=== PATIENT | male | born 1950 | race Caucasian/White ===

== ENCOUNTER 2021-03-23 07:42 | Outpatient (CLI) | payer MEDICARE, OTHER, SELFPAY ==
--- NOTE | ~2021-03-23 | US_ITS ---
EXAMINATION: US carotid duplex BI DATE: 03/23/2021 08:13 INDICATION: Vision disturbance TECHNIQUE: Grayscale, color Doppler, and pulsed Doppler images of the cervical carotid arteries were obtained. The degree of vessel stenosis is placed in one of the following categories: normal, <50%, 5 0-69%, >=70% but less than near-occlusion, near-occlusion, or total occlusion. Note that percent sten osis relative to normal distal artery lumen diameter is indirectly measured from velocity measurement s as described by Favio, et al. Radiology 2003; 229:340-346. Notes: Normal: Peak systolic velocity <125 centimeters/sec and no plaque <50%. Peak systolic velocity <125 ( EDV <40; ICA/CCA PSV ratio <2.0; used these factors only a tandem lesions or low cardiac output or co ntralateral disease) 50-69 %: PSV 125-230 (EDV 40-100; ratio 2-4) >= 70% but less than near occlusion: PSV greater than 230 (EDV > 100; ratio> 4.0) Near Occlusion: PSV that is variable; markedly narrowed lumen Occlusion: Absent flow on color/spectral Doppler and no lumen on mcginnis scale. COMPARISON: None. FINDINGS: RIGHT: The right common carotid artery (CCA) peak systolic velocity (PSV) is 47 cm/s. The right internal car otid artery (ICA) PSV is 69 cm/s. The right ICA end-diastolic velocity (EDV) is 22 cm/s. The right IC A/CCA PSV ratio is 1.5. The external carotid artery (ECA) PSV is 113 cm/s. There is antegrade flow in the right vertebral artery. LEFT: The left CCA PSV is 79 cm/s. The left ICA PSV is 95 cm/s. The left ICA EDV is 27 cm/s. The left ICA/C CA PSV ratio is 1.5. The ECA PSV is 164 cm/s. There is antegrade flow in the left vertebral artery. IMPRESSION: 1. Less than 50% stenosis in the right internal carotid artery by sonographic criteria. 2. Less than 50% stenosis in the left internal carotid artery by sonographic criteria. Reviewed, dictated and finalized at location A. IMPRESSION: 1. Less than 50% stenosis in the right internal carotid artery by sonographic srinivasa gautam. 2. Less than 50% stenosis in the left internal carotid artery by sonographic meme nagel.
== END 2021-03-23 07:43 | disposition home or self-care (01) ==
LOC: ANHIMG 07:48
PROVIDERS: PCP Internal Medicine; Visit Provider Specialist
DX: H53.8 Other visual disturbances (principal); I65.23 Occlusion and stenosis of bilateral carotid arteries
CPT/HCPCS: 93880

== ENCOUNTER 2022-05-22 01:37 | Day surgery (SDC) | payer MEDICARE, OTHER, SELFPAY ==
[2022-05-06 12:57] VITALS: BMI 29.0
--- NOTE | 2022-05-21 11:57 | P.PNAN_ITS ---
Anes - Initial Pre Proc Eval Procedure: Operation Date: 05/22/22 11:00 Proposed Procedures p Screening Colonoscopy - Stevie Cota MD Date/Time: 05/21/22 11:57 Surgeon: Stevie Cota MD Pre Op Diagnosis: neoplasm screening Patient Data Age: 71 Gender: M Height: 1.85 m Weight: 100 kg Allergies Allergy/AdvReac Type Severity Reaction Status Date / Time No Known Allergies Allergy Mild Verified 05/22/22 10:22 Home Medications Medication Instructions Recorded Confirmed Type sodium sul 1.479 gram-potas ch See Rx Instructions PO PER PKG DIR 04/30/22 05/22/22 Rx 0.188 gram-magnes sul 0.225 gram #24 tabs tablet (Sutab) finasteride 5 mg tablet 1 tablet PO DAILY 05/06/22 05/22/22 History losartan 50 mg tablet 50 tablet PO DAILY 05/06/22 05/22/22 History metformin 500 mg tablet 500 tablet PO DAILY 05/06/22 05/22/22 History nebivolol 5 mg tablet (Bystolic) 5 mg PO HS 05/06/22 05/22/22 History Patient hx anesthesia problems: none Family hx anesthesia problems: none Results Review: All pre-operative results and documents have been reviewed as part of the pre- operative evaluation. [facility]LY [facility] Past Medical History Medical History BPH (benign prostatic hyperplasia) Diabetes type 2, controlled Hypertension Social History Social History Years smoked: 40 Smoking status: Former smoker Tobacco type: pipe Alcohol intake: current Drinks per week: 2 Substance use type: does not use Anes - Eval Final PreProcedure Day of Procedure 05/21/22 11:57 Patient weight: overweight Heart: regular rate and rhythm Lungs: clear to auscultation Airway: Mallampati scale class II Neurological: alert and oriented Last oral intake: >/= 8 hours ASA classification: III Emergent: no Anesthetic plan: proceed Anesthesia type and monitoring: general GIVS and standard monitoring Results Review: All pre-operative results and documents have been reviewed as part of the pre- operative evaluation. Informed Consent: The patient's anesthetic plan and its attendant risks and benefits were discussed with the patient/family/POA. Questions were solicited and answers provided to the satisfaction of the patient/family/POA.
[2022-05-22 10:24] VITALS: BP 181/64; PULSE 48; RESP 17; TEMP 36.4; O2SAT 97
[2022-05-22] MEDS: LACTATED RINGERS 1,000 ML 150 ML IV CONT (10:34)
[2022-05-22 10:39] LABS: Glucose Point of Care 142 mg/dl (65-105)
--- NOTE | 2022-05-22 11:09 | PM.HPGS ---
History of Present Illness History of Present Illness Consent: Risks, benefits, and alternatives have been discussed and questions answered. Patient agrees to proceed with procedure. Chief complaint: neoplasm screening Narrative: Juan Daniel Herrera is a 71 year old male Was referred for colon cancer screening. Review of Systems Review of Systems: All systems reviewed & are unremarkable except as noted in HPI and below PMFSH Past Medical History Medical History BPH (benign prostatic hyperplasia) Diabetes type 2, controlled Hypertension Social History Social History Years smoked: 40 Smoking status: Former smoker Tobacco type: pipe Alcohol intake: current Drinks per week: 2 Substance use type: does not use Meds Home Medications and Allergies Home Medications Medication Instructions Recorded Confirmed Type sodium sul 1.479 gram-potas ch See Rx Instructions PO PER PKG DIR 04/30/22 05/22/22 Rx 0.188 gram-magnes sul 0.225 gram #24 tabs tablet (Sutab) finasteride 5 mg tablet 1 tablet PO DAILY 05/06/22 05/22/22 History losartan 50 mg tablet 50 tablet PO DAILY 05/06/22 05/22/22 History metformin 500 mg tablet 500 tablet PO DAILY 05/06/22 05/22/22 History nebivolol 5 mg tablet (Bystolic) 5 mg PO HS 05/06/22 05/22/22 History Allergies Allergy/AdvReac Type Severity Reaction Status Date / Time No Known Allergies Allergy Mild Verified 05/22/22 10:22 Vital Signs Vital Signs - 24 hr 05/22/22 10:24 Temperature 36.4 C L Pulse Rate 48 L Respiratory Rate 17 Blood Pressure 181/64 H Pulse Oximetry 97 Oxygen Delivery Room Air Exam Resp: Auscultation: clear to auscultation bilaterally Cardio: Rate: regular rate Rhythm: regular rhythm GI: GI Palp: Yes Soft to palpation and No Tenderness to palpation present (GI) Assessment and Plan Assessment and plan (1) Colon cancer screening: Code(s): Z12.11 - Encounter for screening for malignant neoplasm of colon Status: Acute Assessment and Plan: Colonoscopy with possible biopsy or polypectomy or cautery or injection of substances.
[2022-05-22 11:30] VITALS: BP 123/61; PULSE 45; RESP 16; O2SAT 95
[2022-05-22 11:40] VITALS: BP 124/59; PULSE 48; RESP 20; O2SAT 99
[2022-05-22 11:50] VITALS: BP 168/76; PULSE 52; RESP 22; O2SAT 100
== END 2022-05-22 12:00 | disposition home or self-care (01) ==
PROVIDERS: PCP Internal Medicine; Visit Provider Internal Medicine Gastroenterology
PROC: 0DJD8ZZ Inspection of Lower Intestinal Tract, Via Natural or Artificial Opening Endoscopic (ICD-10-PCS; CPT 45378; principal; 2022-05-22 11:00)
DX: Z12.11 Encounter for screening for malignant neoplasm of colon (principal); D12.2 Benign neoplasm of ascending colon; D12.8 Benign neoplasm of rectum; K57.30 Diverticulosis of large intestine without perforation or abscess without bleeding; N40.0 Benign prostatic hyperplasia without lower urinary tract symptoms; E11.9 Type 2 diabetes mellitus without complications; I10 Essential (primary) hypertension; Z87.891 Personal history of nicotine dependence; Z79.84 Long term (current) use of oral hypoglycemic drugs
CPT/HCPCS: 45380; 45385; 82948; 88305; J2704; J7120

== ENCOUNTER 2022-10-09 10:31 | Emergency (ER) | payer MEDICARE, OTHER, SELFPAY ==
[2022-10-09 10:36] VITALS: BP 172/62; PULSE 84; RESP 18; TEMP 36.4; O2SAT 99
[2022-10-09 11:56] VITALS: BP 146/66; PULSE 51
--- NOTE | 2022-10-09 13:51 | ECG_ITS ---
Measurements Intervals [place] Rate: 51 P: 16 NH: 174 QRS: -9 QRSD: 113 T: 35 QT: 449 QTc: 417 Interpretive Statements SINUS BRADYCARDIA INTRAVENTRICULAR CONDUCTION DELAY CONSIDER INFERIOR INFARCT, AGE INDETERMINATE BORDERLINE ST-T WAVE ABNORMALITY- HIGH LATERAL LEADS BASELINE ARTIFACT- I, II, III, AVR, AVL, AVF ABNORMAL ECG NO PREVIOUS ECG AVAILABLE FOR COMPARISON Electronically Signed On 10-09-2022 16:21:54 CONSULTING GROUP ANALYST by Eusebio David D.O.
--- NOTE | 2022-10-09 14:37 | ED.RECABL ---
HPI - Recheck/Abnormal Lab/Rx General Chief Complaint: Recheck/Abnormal Lab/Rx Stated Complaint: high bp Time Seen by Provider: 10/09/22 13:36 Source: patient and RN notes reviewed Mode of arrival: ambulatory Limitations: no limitations History of Present Illness HPI narrative: This is a 71 year old male with history of hypertension who presents for evaluation of elevated blood pressure. Patient was scheduled to have cataract surgery this morning but his surgery was postponed due to elevated blood pressure. He states his blood pressure was 200s/70s this morning. He was told at the clinic that he needed to come to ER. He denies dizziness, headache, chest pain or shortness of breath. HE took his blood pressure medication this morning and he takes another medication at night. He denies any recent changes in his medication. He denies nervousness or anxiety. His primary care provider is Dr. Mcdaniel. Related Data Home Medications Medication Instructions Recorded Confirmed finasteride 5 mg tablet 1 tablet PO DAILY 05/06/22 05/22/22 losartan 50 mg tablet 50 tablet PO DAILY 05/06/22 05/22/22 metformin 500 mg tablet 500 tablet PO DAILY 05/06/22 05/22/22 nebivolol 5 mg tablet (Bystolic) 5 mg PO HS 05/06/22 05/22/22 Allergies Allergy/AdvReac Type Severity Reaction Status Date / Time No Known Allergies Allergy Mild Verified 05/22/22 10:22 Review of Systems Review of Systems: All systems reviewed & are unremarkable except as noted in HPI and below Constitutional: Constitutional: Denies chills, Denies fatigue and Denies fever(s) Eyes: Eyes: Denies photophobia Cardiovascular: Cardiovascular: Denies chest pain and Denies radiating jaw, neck or arm pain Respiratory: Respiratory: Denies dyspnea Neurologic: Denies headache(s), Denies focal weakness and Denies numbness PMFSH Past Medical History Medical History BPH (benign prostatic hyperplasia) Diabetes type 2, controlled Hypertension Social History Social History Years smoked: 40 Smoking status: Former smoker Tobacco type: pipe Alcohol intake: current Drinks per week: 2 Substance use type: does not use Exam Narrative: GENERAL: Well-appearing, well-nourished, and in no acute distress. HEAD: Normocephalic, atraumatic EYES: PERRLA and EOMI, conjunctiva clear without discharge THROAT:Mucous membranes moist, Oropharynx normal without erythema, exudate, peritonsillar swelling or fluctuance NECK: Supple, without lymphadenopathy or mass RESPIRATORY: No respiratory distress, Airway patent, Respirations non-labored, Clear to auscultation without rales, rhonchi or wheeze HEART: Regular rate and rhythm. No murmur heard. Normal peripheral pulses. ABDOMEN: Soft, nontender, nondistended, normal active bowel sounds. No masses. No rebound or guarding, No organomegaly. EXTREMITIES: No edema, normal strength with full range of motion. SKIN: Warm, dry, normal color without rash NEURO: Alert and oriented x3. CN 2-12 grossly intact. No focal deficits. PSYCH: Normal mood and affect. Course Reevaluation(s) Reevaluation #1: Patient is asymptomatic. I spoke with his PCP who recommends increase losartan to 100 mg and he will follow up in clinic. Date: 10/09/22 Time: 15:32 Vital Signs Vital signs: Vital Signs Temperature 97.6 F 10/09/22 10:36 Pulse Rate 84 10/09/22 10:36 Respiratory Rate 18 10/09/22 10:36 Blood Pressure 172/62 H 10/09/22 10:36 Pulse Oximetry 99 10/09/22 10:36 Oxygen Delivery Room Air 10/09/22 10:36 Temperature 97.6 F 10/09/22 10:36 Pulse Rate 51 L 10/09/22 11:56 Respiratory Rate 18 10/09/22 10:36 Blood Pressure 146/66 H 10/09/22 11:56 Pulse Oximetry 99 10/09/22 10:36 Oxygen Delivery Room Air 10/09/22 10:36 MDM - Recheck/Abnormal Lab/Rx Lab Data Attestation: I reviewed the patient's lab resul
[2022-10-09 14:49] LABS: Basophils Percent Auto 0.2 % (0.2-1.2); Eosinophils Absolute Auto 0.1 K/mm3 (0-0.3); Eosinophils Percent Auto 1.3 % (0-4.4); Hematocrit 39.2 % (42.0-52.0); Hemoglobin 13.7 g/dL (14.0-18.0); Immature Granulocyte Absolute 0.02 K/mm3 (0.00-0.031); Immature Granulocyte Percent A 0.3 % (0-0.5); Immature Platelet Fraction Pct 5.7 % (0.9-11.2); Lymphocytes Percent Auto 29.8 % (18.3-44.2); Mean Corpuscular HGB Conc 34.9 g/dl (32-36); Mean Corpuscular Hemoglobin 31.4 pg (26-34); Mean Corpuscular Volume 89.7 fl (80-100); Mean Platelet Volume 10.3 fl (7.4-10.4); Monocytes Absolute Auto 0.6 K/mm3 (0.1-0.6); Monocytes Percent Auto 8.6 % (2.6-8.5); Neutrophils Absolute Auto 3.8 K/mm3 (1.3-6.7); Neutrophils Percent Auto 59.8 % (45.5-73.1); Platelet Count Result 154 k/mm3 (150-375); Red Blood Count 4.37 M/mm3 (4.6-6.20); Red Cell Distribution Width 12.5 % (11.5-14.5); White Blood Count 6.4 K/mm3 (4.5-10.0)
[2022-10-09 15:00] LABS: Anion Gap 9 mmol/L (8-16); Blood Urea Nitrogen 18 mg/dL (9-20); Carbon Dioxide 25 mmol/L (22-30); Chloride 105 mmol/L (98-107); Estimated CRCL calculation 63 ml/min; Estimated Glomerular Filt Rate > 60; Glucose 120 mg/dL (65-110); Potassium 4.5 mmol/L (3.4-5.0); Sodium 139 mmol/L (137-145)
[2022-10-09 15:28] LABS: Appearance Urine Clear (Clear); Bilirubin Urine Negative (Negative); Blood Urine Negative (Negative); Color Urine Yellow (Yellow); Glucose Urine UA Negative (Negative); Ketones Urine Negative (Negative); Leukocyte Esterase Ur Negative LEU/UL (Negative); Nitrate Urine Negative (Negative); Protein Urine Negative (Negative); Urobilinogen Urine 0.2 mg/dL (<2.0); pH Urine 6.5 (5.0-9.0)
[2022-10-09 15:30] LABS: Add Urine Microscopic? NO
[2022-10-09] MEDS: LOSARTAN POTASSIUM 50 MG TABLET PO (15:36)
[2022-10-09 15:51] LABS: Influenza A QL RT-PCR Negative (Negative); Influenza B QL RT-PCR Negative (Negative); SARS-CoV-2 RNA PCR Negative
== END 2022-10-09 15:44 | disposition home or self-care (01) ==
PROVIDERS: Emergency Provider General Practice; PCP Internal Medicine
DX: I10 Essential (primary) hypertension (principal); I16.0 Hypertensive urgency; Z20.822 Contact with and (suspected) exposure to COVID-19; N40.0 Benign prostatic hyperplasia without lower urinary tract symptoms; E11.9 Type 2 diabetes mellitus without complications; Z79.84 Long term (current) use of oral hypoglycemic drugs; Z87.891 Personal history of nicotine dependence; R00.1 Bradycardia, unspecified; I45.9 Conduction disorder, unspecified; R94.31 Abnormal electrocardiogram [ECG] [EKG]
CPT/HCPCS: 36415; 80048; 81003; 85025; 85055; 87502; 93005; 99283; A9270; U0003; U0005

== ENCOUNTER 2025-01-26 14:06 | Inpatient (IN) | payer MEDICARE, OTHER, SELFPAY ==
[2025-01-26 14:09] VITALS: BP 112/60; PULSE 60; RESP 20; TEMP 36.4; O2SAT 95
--- NOTE | 2025-01-26 16:09 | ED.DIZZY ---
HPI - Dizziness General Chief Complaint: Dizziness <Lisa Walker PA-C - Last Filed: 01/27/25 14:21> Stated Complaint: dizzy, near syncope <Lisa Walker PA-C - Last Filed: 01/27/25 14:21> Time Seen by Provider: 01/26/25 16:09 <Lisa Walker PA-C - Last Filed: 01/27/25 14:21> Focused HPI: This is a 74 year old male that presents to the ER for syncopal episodes. Reports over the last 2 weeks this has happened several times. He has worn a heart monitor. Reports he has been taken off of both of his blood pressure medications (Losartan, Nebivolol), as he has been running low. Reports today when he was standing up at lunch he got really lightheaded. He felt better after sitting down. GENERAL: Well-appearing, well-nourished, and in no acute distress. HEAD: Normocephalic, atraumatic. CHEST: Clear to auscultation. ?No respiratory distress. HEART: Regular rate and rhythm.? NEURO: ?Alert and oriented x3. Patient screened in triage and initial orders placed.? ?Additional care and disposition to be based upon?diagnostic testing and treatment. <Lisa Walker PA-C - Last Filed: 01/27/25 14:21> History of Present Illness HPI Narrative: I agree with the assessment and documentation of Lisa Walker PA-C. <Patti Bruner APRN - Last Filed: 01/26/25 22:08> Related Data Home Medications: Home Medications ?Medication ?Instructions ?Recorded ?Confirmed ?Last Taken ?Type finasteride 5 mg tablet 1 tablet PO DAILY 05/06/22 01/27/25 01/27/25 History losartan 50 mg tablet 50 tablet PO DAILY 05/06/22 01/27/25 05/21/22 History metformin 500 mg tablet 1,000 mg PO QAM 05/06/22 01/27/25 01/27/25 History nebivolol 5 mg tablet (Bystolic) 5 mg PO HS 05/06/22 01/27/25 05/21/22 History aspirin 81 mg capsule 81 mg PO DAILY 01/27/25 01/27/25 01/27/25 History rosuvastatin 10 mg tablet 10 mg PO QPM 01/27/25 01/27/25 01/26/25 History <Lisa Walker PA-C - Last Filed: 01/27/25 14:21> Allergies/Adverse Reactions: Allergies Allergy/AdvReac Type Severity Reaction Status Date / Time No Known Allergies Allergy Mild Verified 01/26/25 14:07 <Lisa Walker PA-C - Last Filed: 01/27/25 14:21> Review of Systems Review of Systems: All systems reviewed & are unremarkable except as noted in HPI and below <Patti Bruner APRN - Last Filed: 01/26/25 22:08> [facility] Past Medical History Medical History: Medical History Diabetes type 2, controlled BPH (benign prostatic hyperplasia) Hypertension <Lisa Walker PA-C - Last Filed: 01/27/25 14:21> Social History Social History: Social History Years smoked: 40 Smoking status: Former smoker Tobacco type: pipe Alcohol intake: current Drinks per week: 2 Substance use type: does not use <Lisa Walker PA-C - Last Filed: 01/27/25 14:21> Exam Narrative: GENERAL: Well appearing, well-nourished, non-toxic, in no acute distress. HEAD: Normocephalic, atraumatic. NECK: Supple. No adenopathy, no masses. RESPIRATORY: Airway patent, respirations nonlabored. Clear to auscultation bilaterally, no rales, rhonchi, wheezing. CARDIOVASCULAR: Regular rate and rhythm without murmurs, rubs, or gallops. Peripheral pulses 2+ and equal bilaterally. ABDOMINAL: Soft, nontender, nondistended, no hepatosplenomegaly. Normoactive BS. MUSCULOSKELETAL: Moves all extremities. Strength/ROM intact without gross deformities. SKIN: Warm, dry, normal color. No rashes. NEURO: A&O X3. Speech clear. Cranial nerves II-XII grossly intact. Steady gait. No ataxic movements. PSYCHIATRIC: Appropriate mood and affect. Normal interaction. <Patti Bruner, YOVANY - Last Filed: 01/26/25 22:08> Course Vital Signs Vital signs: Vital Signs Temperature 97.6 F 01/26/25 14:09 Pulse Rate 60 01/26/25 14:09 Respiratory Rate 20 01/26/25 14:09 Blood Pressure 112/60 01/26/25 14:09 Pulse Oximetry 95 01/26/25 14:09 Oxygen Delivery Room Air 01/26/25 14:09 Temperature 97.6 F 01/27/25 07:26 Pulse Rate 56 L 01/27/25 11:33 Respiratory Rate 15 01/27/25 11:29 Blood Pressure 191/69 H 01/27/25 11:33 Pulse Oximetry 98 01/27/25 11:29 Oxygen Delivery Room Air 01/26/25 14:09 <Lisa Walker PA-C - Last Filed: 01/27/25 14:21> Vital Signs Temperature 97.6 F 01/26/25 14:09 Pulse Rate 60 01/26/25 14:09 Respiratory Rate 20 01/26/25 14:09 Blood Pressure 112/60 01/26/25 14:09 Pulse Oximetry 95 01/26/25 14:09 Oxygen Delivery Room Air 01/26/25 14:09 Temperature 97.6 F 01/27/25 07:26 Pulse Rate 56 L 01/27/25 11:33 Respiratory Rate 15 01/27/25 11:29 Blood Pressure 191/69 H 01/27/25 11:33 Pulse Oximetry 98 01/27/25 11:29 Oxygen Delivery Room Air 01/26/25 14:09 <Patti Bruner, VP MEDICAL - Last Filed: 01/26/25 22:08> MDM - Dizziness MDM Narrative Medical decision making narrative: This is a 74 year old male that presents to the ER for syncopal episodes. Reports over the last 2 weeks this has happened several times. He has worn a heart monitor. Reports he has been taken off of both of his blood pressure medications (Losartan, Nebivolol), as he has been running low. Reports today when he was standing up at lunch he got really lightheaded. He felt better after sitting down. Labs Ordered: CBC, CMP, PTT, INR, TSH, magnesium, COVID/flu/RSV, lactate, troponin Imaging Ordered: CTA brain carotid, chest x-ray Medications Ordered: 2 L normal saline IV bolus Results: Patient's CTA indicated CTA head and neck. Percent stenosis per NASCET criteria is 60% on the left side and 40% on the right side. No intracranial occlusion or significant stenosis. Pt's chest x-ray was negative for any acute abnormalities. Diagnosis: Orthostatic hypotension, acute kidney injury Patient Education/Shared MDM: Results shared with patient and his . He was in agreement for plan of admission to the hospital. Pt's glucose will be rechecked prior to his admission. 2199-Spoke with hospitalist who was in agreement with plan. He requested pt's lactic acid be drawn. <Patti Bruner APRN - Last Filed: 01/26/25 22:08> Differential Diagnosis Differential diagnosis: Likely benign paroxysmal positional vertigo, orthostatic hypotension, cerebrovascular accident and transient cerebral ischemia <Patti Bruner APRN - Last Filed: 01/26/25 22:08> Lab Data Attestation: I reviewed the patient's lab results. <Patti Bruner APRN - Last Filed: 01/26/25 22:08> Result diagrams: 01/27/25 07:21 01/27/25 07:21 <Lisa Walker PA-C - Last Filed: 01/27/25 14:21> Labs: Lab Results 01/26/25 01/26/25 01/26/25 Range/Units 17:31 17:53 18:47 WBC 6.0 (4.5-10.0) K/mm3 RBC 4.00 L (4.6-6.20) M/mm3 Hgb 12.4 L (14.0-18.0) g/dL Hct 36.4 L (42.0-52.0) % MCV 91.0 (80-100) fl MCH 31.0 (26-34) pg MCHC 34.1 (32-36) g/dl RDW 12.6 (11.5-14.5) % Plt Count 137 L (150-375) k/mm3 MPV 10.1 (7.4-10.4) fl Immature Gran % (Auto) 0.3 (0-0.5) % Neut % (Auto) 62.6 (45.5-73.1) % Lymph % (Auto) 27.0 (18.3-44.2) % [place] % (Auto) 8.8 H (2.6-8.5) % Eos % (Auto) 1.0 (0-4.4) % Baso % (Auto) 0.3 (0.2-1.2) % Lymph # (Auto) 1.63 (0.9-3.2) K/mm3 [place] # (Auto) 0.5 (0.1-0.6) K/mm3 Eos # (Auto) 0.1 (0-0.3) K/mm3 Baso # (Auto) 0.0 (0.0-0.1) K/mm3 Abs Immat Gran (auto) 0.02 (0.00-0.031) K/mm3 Absolute Neuts (auto) 3.8 (1.3-6.7) K/mm3 Absolute Nucleated RBC 0.000 (0.0-0.012) K/mm3 Nucleated RBC % 0.0 (0.0-0.2) % % Immature Plt Fraction 4.5 (0.9-11.2) % PT 13.4 (11.1-14.7) Seconds INR 1.0 APTT 33.4 (22.3-36.8) Seconds Sodium 139 (137-145) mmol/L Potassium 4.8 (3.4-5.0) mmol/L Chloride 105 (98-107) mmol/L Carbon Dioxide 24 (22-30) mmol/L Anion Gap 10 (4-12) mmol/L BUN 28 H D (9-20) mg/dL Creatinine 1.48 H (0.7-1.3) mg/dL Estim Creat Clear Calc 45 ml/min Estimated GFR 47 L (59 - ) Glucose 169 H (65-110) mg/dL Calcium 9.1 (8.4-10.2) mg/dL Magnesium 2.1 (1.6-2.3) mg/dL Total Bilirubin 1.1 (0.2-1.3) mg/dL AST 19 (17-59) U/L ALT 18 (6-50) U/L Alkaline Phosphatase 48 (38-126) U/L Troponin I < 0.012 (0.000-0.034) ng/mL Total Protein 7.0 (6.3-8.2) g/dL Albumin 4.1 (3.5-5.1) g/dL TSH (Reflex) 0.716 (0.465-4.68) uIU/mL Urine Color Yellow (Yellow) Urine Appearance Clear (Clear) Urine pH 5.5 (5.0-9.0) Ur Specific [place] 1.019 (1.001-1.035) Urine Protein Negative (Negative) mg/dL Urine Glucose (UA) 2+ H (Negative) mg/dL Urine Ketones Negative (Negative) mg/dL Ur Blood (Man) Negative (Negative) Urine Nitrate Negative (Negative) Urine Bilirubin Negative (Negative) Urine Urobilinogen 1.0 (<2.0) mg/dL Leukocyte Esterase Rfl Negative (Negative) LEANN/UL Influenza A (RT-PCR) Negative (Negative) Influenza B (RT-PCR) Negative (Negative) RSV (RT-PCR) Negative (Negative) SARS-CoV-2 RNA (RT-PCR) Negative (Negative) <Lisa Walker PA-C - Last Filed: 01/27/25 14:21> Lab Results 01/26/25 01/26/25 01/26/25 Range/Units 17:31 17:53 18:47 WBC 6.0 (4.5-10.0) K/mm3 RBC 4.00 L (4.6-6.20) M/mm3 Hgb 12.4 L (14.0-18.0) g/dL Hct 36.4 L (42.0-52.0) % MCV 91.0 (80-100) fl MCH 31.0 (26-34) pg MCHC 34.1 (32-36) g/dl RDW 12.6 (11.5-14.5) % Plt Count 137 L (150-375) k/mm3 MPV 10.1 (7.4-10.4) fl Immature Gran % (Auto) 0.3 (0-0.5) % Neut % (Auto) 62.6 (45.5-73.1) % Lymph % (Auto) 27.0 (18.3-44.2) % [place] % (Auto) 8.8 H (2.6-8.5) % Eos % (Auto) 1.0 (0-4.4) % Baso % (Auto) 0.3 (0.2-1.2) % Lymph # (Auto) 1.63 (0.9-3.2) K/mm3 [place] # (Auto) 0.5 (0.1-0.6) K/mm3 Eos # (Auto) 0.1 (0-0.3) K/mm3 Baso # (Auto) 0.0 (0.0-0.1) K/mm3 Abs Immat Gran (auto) 0.02 (0.00-0.031) K/mm3 Absolute Neuts (auto) 3.8 (1.3-6.7) K/mm3 Absolute Nucleated RBC 0.000 (0.0-0.012) K/mm3 Nucleated RBC % 0.0 (0.0-0.2) % % Immature Plt Fraction 4.5 (0.9-11.2) % PT 13.4 (11.1-14.7) Seconds INR 1.0 APTT 33.4 (22.3-36.8) Seconds Sodium 139 (137-145) mmol/L Potassium 4.8 (3.4-5.0) mmol/L Chloride 105 (98-107) mmol/L Carbon Dioxide 24 (22-30) mmol/L Anion Gap 10 (4-12) mmol/L BUN 28 H D (9-20) mg/dL Creatinine 1.48 H (0.7-1.3) mg/dL Estim Creat Clear Calc 45 ml/min Estimated GFR 47 L (59 - ) Glucose 169 H (65-110) mg/dL Calcium 9.1 (8.4-10.2) mg/dL Magnesium 2.1 (1.6-2.3) mg/dL Total Bilirubin 1.1 (0.2-1.3) mg/dL AST 19 (17-59) U/L ALT 18 (6-50) U/L Alkaline Phosphatase 48 (38-126) U/L Troponin I < 0.012 (0.000-0.034) ng/mL Total Protein 7.0 (6.3-8.2) g/dL Albumin 4.1 (3.5-5.1) g/dL TSH (Reflex) 0.716 (0.465-4.68) uIU/mL Urine Color Yellow (Yellow) Urine Appearance Clear (Clear) Urine pH 5.5 (5.0-9.0) Ur Specific [place] 1.019 (1.001-1.035) Urine Protein Negative (Negative) mg/dL Urine Glucose (UA) 2+ H (Negative) mg/dL Urine Ketones Negative (Negative) mg/dL Ur Blood (Man) Negative (Negative) Urine Nitrate Negative (Negative) Urine Bilirubin Negative (Negative) Urine Urobilinogen 1.0 (<2.0) mg/dL Leukocyte Esterase Rfl Negative (Negative) LEANN/UL Influenza A (RT-PCR) Negative (Negative) Influenza B (RT-PCR) Negative (Negative) RSV (RT-PCR) Negative (Negative) SARS-CoV-2 RNA (RT-PCR) Negative (Negative) <Patti Bruner APRN - Last Filed: 01/26/25 22:08> Imaging Data Attestation: I personally reviewed and interpreted this imaging study as follows: <Patti Bruner APRN - Last Filed: 01/26/25 22:08> Radiologist's impression: Impressions Chest X-Ray 01/26/25 16:35 IMPRESSION: 1. No acute cardiopulmonary disease. Head/Neck CTA 01/26/25 19:37 IMPRESSION: 1. CTA head and neck. Percent stenosis per NASCET criteria is 60% on the left side and 40% on the right side. No intracranial occlusion or significant stenosis <Patti Bruner APRN - Last Filed: 01/26/25 22:08> Critical Care Time Critical Care Time Critical Care Time: Yes <Lisa Walker PA-C - Last Filed: 01/27/25 14:21> Total Critical Care Time: 35 <LEILA Tello Last Filed: 01/27/25 14:21> Discharge Plan Discharge Clinical Impression: Orthostatic hypotension, Acute kidney injury <LEILA Tello Last Filed: 01/27/25 14:21> Patient Disposition: Still a Patient <LEILA Tello Last Filed: 01/27/25 14:21> Condition: Stable <LEILA Tello Last Filed: 01/27/25 14:21>
[2025-01-26 17:41] LABS: Basophils Percent Auto 0.3 % (0.2-1.2); Eosinophils Absolute Auto 0.1 K/mm3 (0-0.3); Hematocrit 36.4 % (42.0-52.0); Hemoglobin 12.4 g/dL (14.0-18.0); Immature Granulocyte Absolute 0.02 K/mm3 (0.00-0.031); Immature Granulocyte Percent A 0.3 % (0-0.5); Immature Platelet Fraction Pct 4.5 % (0.9-11.2); Lymphocytes Absolute Auto 1.63 K/mm3 (0.9-3.2); Mean Corpuscular HGB Conc 34.1 g/dl (32-36); Mean Platelet Volume 10.1 fl (7.4-10.4); Monocytes Absolute Auto 0.5 K/mm3 (0.1-0.6); Monocytes Percent Auto 8.8 % (2.6-8.5); Neutrophils Absolute Auto 3.8 K/mm3 (1.3-6.7); Neutrophils Percent Auto 62.6 % (45.5-73.1); Platelet Count Result 137 k/mm3 (150-375); Red Cell Distribution Width 12.6 % (11.5-14.5)
[2025-01-26 18:00] LABS: Alanine Aminotransferase 18 U/L (6-50); Albumin Level 4.1 g/dL (3.5-5.1); Alkaline Phosphatase 48 U/L (38-126); Anion Gap 10 mmol/L (4-12); Aspartate Amino Transferase 19 U/L (17-59); Bilirubin,Total 1.1 mg/dL (0.2-1.3); Blood Urea Nitrogen 28 mg/dL (9-20); Calcium 9.1 mg/dL (8.4-10.2); Carbon Dioxide 24 mmol/L (22-30); Chloride 105 mmol/L (98-107); Estimated CRCL calculation 45 ml/min; Estimated Glomerular Filt Rate 47; Glucose 169 mg/dL (65-110); Potassium 4.8 mmol/L (3.4-5.0); Sodium 139 mmol/L (137-145)
[2025-01-26 18:11] LABS: Troponin I < 0.012 ng/mL (0.000-0.034)
[2025-01-26 18:23] LABS: Magnesium 2.1 mg/dL (1.6-2.3)
[2025-01-26 18:46] VITALS: BP 193/55; PULSE 62
[2025-01-26 18:52] VITALS: BP 141/57; PULSE 66
[2025-01-26 18:54] VITALS: BP 89/40; PULSE 70
[2025-01-26 18:56] LABS: Thyroid Stimulating Hormone Reflex 0.716 uIU/mL (0.465-4.68)
[2025-01-26 18:56] LABS: Add Urine Microscopic? NO; Appearance Urine Clear (Clear); Bilirubin Urine Negative (Negative); Blood Urine Negative (Negative); Color Urine Yellow (Yellow); Glucose Urine UA 2+ mg/dL (Negative); Ketones Urine Negative (Negative); Leukocyte Esterase Ur Negative LEU/UL (Negative); Nitrate Urine Negative (Negative); Protein Urine Negative (Negative); Specific Grav Ur 1.019 (1.001-1.035); pH Urine 5.5 (5.0-9.0)
[2025-01-26 18:57] LABS: Influenza A QL RT-PCR Negative (Negative); Influenza B QL RT-PCR Negative (Negative); RSV RNA, RT-PCR Negative (Negative); SARS-CoV-2 RNA PCR Negative (Negative)
[2025-01-26 19:10] LABS: Prothrombin Time 13.4 Seconds (11.1-14.7)
[2025-01-26 19:11] LABS: Partial Thromboplastin Time 33.4 Seconds (22.3-36.8)
[2025-01-26] MEDS: SODIUM CHLORIDE 0.9% IV 1,000 ML 999 ML IV CONT ×2 (20:16→20:38)
[2025-01-26 20:57] VITALS: BP 198/63; PULSE 64; RESP 16; O2SAT 100
[2025-01-26 22:45] LABS: Lactic Acid Reflex 1.2 mmol/L (0.7-2.0)
[2025-01-26 22:48] LABS: Glucose Point of Care 166 mg/dl (65-105)
--- NOTE | 2025-01-26 23:40 | PM.IMHP ---
H&P: HPI History of Present Illness Date/Time: 01/27/25 02:53 Chief Complaint: 1. Dizziness Narrative: Chino Herrera is a 74 yo M with a mHx significant for dizziness, hypertension, NIDDM2, BPH. He has been experiencing intermittent dizziness over the years; it is usually aggravated by standing from a standing position; alleviated by sitting or laying supine; associated with falls and a restriction of his ADLs In the past his Tamsulosin was stopped; he has experience micturition syncope and in recent weeks has had to stop his Nebivolol and Losartan, had a Holter monitor placed to evaluate for cardiac events. He has remained stable until hours [employer] when after dinner at a restaurant, he stood up to leave and developed dizziness which resolved on sitting but returned when he tried again to stand. He was therefore brought to the ED for expert evaluation. 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 He resides with his and does not ambulate with an assist device Work-up findings Orthostatic VS: Sitting 141/57, HR 66 Standing 89/40; HR70 Sitting 198/63, HR 64 WbC 6; Hb 12; PLT 137 BUN 28; Cr 1.48; GFr 47; UA: Unremarkable Influenza A/B; RSV; COVID-19: Not detected CXR: Unremarkable CTA head and neck: 60% on the left side and 40% on the right side. No intracranial occlusion or significant stenosis Juan Daniel Herrera will be admitted, evaluated and managed for orthostatic hypotension with dizziness Review of Systems Review of Systems: All systems reviewed & are unremarkable except as noted in HPI and below PMFSH Past Medical History Medical History Diabetes type 2, controlled BPH (benign prostatic hyperplasia) Hypertension Social History Social History Years smoked: 40 Smoking status: Former smoker Tobacco type: pipe Alcohol intake: current Drinks per week: 2 Substance use type: does not use Meds Home Medications and Allergies Home Medications ?Medication ?Instructions ?Recorded ?Confirmed ?Type sodium sul 1.479 gram-potas ch See Rx Instructions PO PER PKG DIR 04/30/22 01/27/25 Rx 0.188 gram-magnes sul 0.225 gram #24 tabs tablet (Sutab) finasteride 5 mg tablet 1 tablet PO DAILY 05/06/22 01/27/25 History losartan 50 mg tablet 50 tablet PO DAILY 05/06/22 01/27/25 History metformin 500 mg tablet 1,000 mg PO QAM 05/06/22 01/27/25 History nebivolol 5 mg tablet (Bystolic) 5 mg PO HS 05/06/22 01/27/25 History aspirin 81 mg capsule 81 mg PO DAILY 01/27/25 01/27/25 History rosuvastatin 10 mg tablet 10 mg PO QPM 01/27/25 01/27/25 History Allergies Allergy/AdvReac Type Severity Reaction Status Date / Time No Known Allergies Allergy Mild Verified 01/26/25 14:07 Vital Signs Vital Signs - 24 hr 01/26/25 14:09 01/26/25 18:46 01/26/25 18:52 Temperature 97.6 F Pulse Rate 60 62 66 Respiratory Rate 20 Blood Pressure 112/60 193/55 H 141/57 H Pulse Oximetry 95 Oxygen Delivery Room Air 01/26/25 18:54 01/26/25 20:57 01/27/25 00:20 Temperature Pulse Rate 70 64 62 Respiratory Rate 16 14 Blood Pressure 89/40 L 198/63 H 189/74 H Pulse Oximetry 100 100 Oxygen Delivery 01/27/25 01:26 Temperature Pulse Rate 58 L Respiratory Rate Blood Pressure Pulse Oximetry Oxygen Delivery Exam Const: General: comfortable and no acute distress HENMT: Ears: TM's normal bilaterally Face/Nose/Sinus: Normal nares present Eyes: General: appearance normal, both eyes and all related structures Sclera: sclerae normal Pupils: Equal, round and reactive pupils present EOM: EOMs intact bilaterally Neck: Neck: supple Resp: Effort & Inspection: normal respiratory effort Auscultation: clear to auscultation bilaterally Cardio: Rate: regular rate : General: Yes bladder normal to palpation Skin: General skin exam: normal color Lesions: lesion noted Rashes: rashes noted Neuro: General: gait normal Motor exam (neuro): 5/5 motor strength present throughout, Normal motor muscle tone present throughout and Abnormal motor strength present Extrem: General: normal to inspection Psych: Mental Status: mental status grossly normal Affect: normal affect H&P: Results Labs Labs: Short CBC 01/26/25 Range/Units 17:31 WBC 6.0 (4.5-10.0) K/mm3 Hgb 12.4 L (14.0-18.0) g/dL Hct 36.4 L (42.0-52.0) % Plt Count 137 L (150-375) k/mm3 BMP 01/26/25 17:31 Sodium 139 Potassium 4.8 Chloride 105 Carbon Dioxide 24 BUN 28 H D Creatinine 1.48 H Glucose 169 H Calcium 9.1 Cardiac Enzymes 01/26/25 Range/Units 17:31 Troponin I < 0.012 (0.000-0.034) ng/mL Liver Function 01/26/25 Range/Units 17:31 Total Bilirubin 1.1 (0.2-1.3) mg/dL AST 19 (17-59) U/L ALT 18 (6-50) U/L Alkaline Phosphatase 48 (38-126) U/L Albumin 4.1 (3.5-5.1) g/dL Urine 01/26/25 Range/Units 18:47 Urine Color Yellow (Yellow) Urine Appearance Clear (Clear) Urine pH 5.5 (5.0-9.0) Ur Specific [place] 1.019 (1.001-1.035) Urine Protein Negative (Negative) mg/dL Urine Glucose (UA) 2+ H (Negative) mg/dL Assessment and Plan Assessment and plan (1) Orthostatic hypotension: Code(s): I95.1 - Orthostatic hypotension Status: Acute (2) Acute kidney injury: Code(s): N17.9 - Acute kidney failure, unspecified Status: Acute Plan Acute and principal conditions 1. Dizziness 2. Orthostatic hypotension. 3. Probable symptomatic bradycardia 4. Acute renal insufficiency Rx: A. IVFs; Fludrocortisone B. ECHO C. Cardiac monitoring; hold BB D. Falls and safety precautions E. Hold ARB; switch to Amlodipine F. May benefit from cardiology input Chronic and stable conditions 1. BPH. 2. NIDDM2. 3. Dyslipidemia. 4. Hypertension Miscellaneous care 1. Code status. Full 2. Nutrition. Regular 3. VTE prophylaxis. SCDs; ERI Hospitalist MIPS Advance Care Plan I have confirmed that the patient's Advanced Care Plan is present, code status is documented, or surrogate decision maker is listed in patient medical record.: Yes Medication Reconciliation I have utilized all available resources to obtain, update and review the patients current medications (includes all prescriptions, OTC, herbals, cannabis, and nutritional supplements).: Yes The patient is not eligible for med reconciliation; the patient is in a emergent medical situation where delaying treatment would jeopardize the patients health.: Yes
[2025-01-27] VITALS (15 sets, daily range): BP systolic 78–211; BP diastolic 52–75; PULSE 56–66; RESP 14–18; TEMP 36.4–36.7; O2SAT 95–100; BMI 28.2
[2025-01-27] MEDS: SODIUM CHLORIDE 0.9% IV 1,000 ML 125 ML IV CONT (00:52)
[2025-01-27] MEDS: FLUDROCORTISONE ACETATE 0.1 MG TABLET PO (04:03)
--- NOTE | 2025-01-27 07:23 | PC.NURSE ---
Morning labs sent down to lab on demo label due to not finding the orders on Mobi. Lab called and notified
[2025-01-27 07:32] LABS: Basophils Percent Auto 0.2 % (0.2-1.2); Eosinophils Absolute Auto 0.1 K/mm3 (0-0.3); Eosinophils Percent Auto 1.4 % (0-4.4); Hematocrit 36.4 % (42.0-52.0); Hemoglobin 12.3 g/dL (14.0-18.0); Immature Granulocyte Absolute 0.02 K/mm3 (0.00-0.031); Immature Granulocyte Percent A 0.3 % (0-0.5); Immature Platelet Fraction Pct 3.9 % (0.9-11.2); Lymphocytes Absolute Auto 1.51 K/mm3 (0.9-3.2); Lymphocytes Percent Auto 26.4 % (18.3-44.2); Mean Corpuscular HGB Conc 33.8 g/dl (32-36); Mean Corpuscular Hemoglobin 30.8 pg (26-34); Mean Corpuscular Volume 91.2 fl (80-100); Mean Platelet Volume 10.2 fl (7.4-10.4); Monocytes Absolute Auto 0.5 K/mm3 (0.1-0.6); Monocytes Percent Auto 9.3 % (2.6-8.5); Neutrophils Absolute Auto 3.6 K/mm3 (1.3-6.7); Neutrophils Percent Auto 62.4 % (45.5-73.1); Platelet Count Result 130 k/mm3 (150-375); Red Blood Count 3.99 M/mm3 (4.6-6.20); Red Cell Distribution Width 12.6 % (11.5-14.5); White Blood Count 5.7 K/mm3 (4.5-10.0)
[2025-01-27 07:44] LABS: Alanine Aminotransferase 16 U/L (6-50); Alkaline Phosphatase 46 U/L (38-126); Anion Gap 6 mmol/L (4-12); Aspartate Amino Transferase 19 U/L (17-59); Bilirubin,Total 1.4 mg/dL (0.2-1.3); Blood Urea Nitrogen 17 mg/dL (9-20); Calcium 8.7 mg/dL (8.4-10.2); Carbon Dioxide 25 mmol/L (22-30); Chloride 110 mmol/L (98-107); Estimated CRCL calculation 63 ml/min; Estimated Glomerular Filt Rate > 60; Glucose 146 mg/dL (65-110); Potassium 4.7 mmol/L (3.4-5.0); Sodium 141 mmol/L (137-145)
[2025-01-27 09:15] LABS: Glucose Point of Care 142 mg/dl (65-105)
[2025-01-27] MEDS: HEPARIN SODIUM 5,000 UNITS/ML VIAL 5000 UNITS SUB-Q (09:39)
[2025-01-27] MEDS: COSYNTROPIN 0.25 MG/ML VIAL IV PUSH (11:20)
--- NOTE | 2025-01-27 12:15 | PC.NURSE ---
Pharmacy called for patient's proscar.
[2025-01-27] MEDS: FINASTERIDE 5 MG TABLET PO (13:22)
--- NOTE | 2025-01-27 14:24 | PC.NURSE ---
Patient continues to remove BP cuff, pulse ox and cardiac leads even though he has been instructed to stay on the monitor.
--- NOTE | 2025-01-27 15:35 | PM.IMPN ---
Progress Note: A&P Assessment and Plan (1) Orthostatic hypotension: Code(s): I95.1 - Orthostatic hypotension Status: Acute Assessment and Plan: Patient reports he did do an outpatient event monitor for 2 weeks which did show bradycardia lowest at 43 at that time his primary care physician did stop his Bystolic and losartan about 2 weeks ago Syncopal episode x2 prior to arrival Positive orthostatic hypotension severe (191/69>119/58>78/52) [facility] Orthostatics Echo pending Cortisol stimulation test pending TSH WNL Troponin Negative EKG: Sinus Bradycardia Cardiology consulted for further recommendations CTA head with no acute findings: 60% on the left side and 40% on the right side. No intracranial occlusion or significant stenosis Fall precautions Was going to start Procardia will hold for now compression stockings with ambulation Continues cardiac monitoring Fludrocortisone 0.1 daily (2) Acute kidney injury: Code(s): N17.9 - Acute kidney failure, unspecified Status: Resolved Assessment and Plan: RESOLVED with IV fluids (3) Diabetes type 2, controlled: Code(s): E11.9 - Type 2 diabetes mellitus without complications Status: Acute Assessment and Plan: Accu-Cheks a.c. HS sliding scale insulin hold oral diabetic medications Diabetic diet (4) BPH (benign prostatic hyperplasia): Code(s): N40.0 - Benign prostatic hyperplasia without lower urinary tract symptoms Status: Acute Assessment and Plan: Resume Proscar Monitor for urinary retention Plan Code status: Full code per patient DVT prophylaxis: Heparin Stress ulcer prophylaxis: NA PT/OT notes: NA Disposition: Patient continues admission to the medical unit for further evaluation and treatment of orthostatic hypotension currently waiting echocardiogram and cortisol testing has consult to Cardiology for further recommendation. Time Spent With Patient Time with patient: 15 - 25 minutes Subjective Date/time seen: 01/27/25 15:35 Interval history: Patient is a 74-year-old male who is admitted for syncopal episode x2 however patient has history hypotension was admitted for further evaluation of severe orthostatic hypotension. 01/27/2025: Assumed Care Patient denies any complaints but continues to have dizziness with ambulation systolic BP 191 at rest however upon rising patient's BP systolic dropped to 78. Patient denies any chest pain, shortness a breath, nausea, vomiting. Will due cortisol test and consult Cardiology appreciate any further recommendations. Review of Systems Review of Systems: All systems reviewed & are unremarkable except as noted in HPI and below Exam Const: General: comfortable and no acute distress HENMT: Ears: TM's normal bilaterally Face/Nose/Sinus: Normal nares present Eyes: General: appearance normal, both eyes and all related structures Sclera: sclerae normal Pupils: Equal, round and reactive pupils present EOM: EOMs intact bilaterally Neck: Neck: supple Resp: Effort & Inspection: normal respiratory effort Auscultation: clear to auscultation bilaterally Cardio: Rate: regular rate : General: Yes bladder normal to palpation Skin: General skin exam: normal color, lesion and rashes Lesions: lesion noted Rashes: rashes noted Neuro: General: gait normal Cranial nerves: Yes Equal, round and reactive pupils present Motor exam (neuro): 5/5 motor strength present throughout, Normal motor muscle tone present throughout and Abnormal motor strength present Extrem: General: normal to inspection Psych: Mental Status: mental status grossly normal Affect: normal affect Objective Data Vital Signs Vital Signs: Vital Signs - 24 hr 01/26/25 18:46 01/26/25 18:52 01/26/25 18:54 Temperature Pulse Rate 62 66 70 Respiratory Rate Blood Pressure 193/55 H 141/57 H 89/40 L Pulse Oximetry 01/26/25 20:57 01/27/25 00:20 01/27/25 01:26 Temperature Pulse Rate 64 62 58 L Respiratory Rate 16 14 Blood Pressure 198/63 H 189/74 H Pulse Oximetry 100 100 01/27/25 02:58 01/27/25 03:01 01/27/25 03:03 Temperature Pulse Rate 61 64 66 Respiratory Rate Blood Pressure 193/69 H 180/72 H 137/61 Pulse Oximetry 01/27/25 03:07 01/27/25 06:07 01/27/25 07:26 Temperature 97.6 F Pulse Rate 66 62 60 Respiratory Rate 15 14 17 Blood Pressure 137/61 185/75 H 211/74 H Pulse Oximetry 100 100 95 01/27/25 09:43 01/27/25 11:29 01/27/25 11:30 Temperature Pulse Rate 60 56 L Respiratory Rate 18 15 Blood Pressure 189/59 H 146/58 H 78/52 L Pulse Oximetry 96 98 01/27/25 11:31 01/27/25 11:33 01/27/25 14:26 Temperature Pulse Rate 57 L 56 L 60 Respiratory Rate 15 Blood Pressure 119/58 L 191/69 H 191/73 H Pulse Oximetry 100 Intake/Output Intake/Output: Intake & Output 01/24/25 01/25/25 01/26/25 01/27/25 23:59 23:59 23:59 23:59 Intake Total 1999 999 Balance 1999 1000 Meds/Results Medications: Active Medications Generic Name Dose Route Start Last Admin Trade Name Freq PRN Reason Stop Dose Admin Albuterol/Ipratropium 3 ml 01/27/25 02:50 Ipratropium 0.5 Mg/Albuterol Sulfate 2.5 Mg Ampul.Neb 3 Ml INHALATION Q4HRT PRN shortness of breath/Wheezing Aspirin 81 mg 01/28/25 09:00 Aspirin 81 Mg Enteric Tablet PO QAM ERI Finasteride 5 mg 01/27/25 10:50 01/27/25 13:22 Finasteride 5 Mg Tablet PO 5 mg DAILY ERI Administration Fludrocortisone Acetate 0.1 mg 01/27/25 02:55 01/27/25 04:03 Fludrocortisone Acetate 0.1 Mg Tablet PO 0.1 mg DAILY@0800 ERI Administration Guaifenesin/Dextromethorphan 10 ml 01/27/25 02:50 Guaifenesin/Dextromethorphan 10 Ml Udc PO Q4H PRN Cough Heparin Sodium (Porcine) 5,000 units 01/27/25 09:00 01/27/25 09:39 Heparin Sodium 5,000 Units/Ml Vial SUB-Q 5,000 units Q12HR ERI Administration Melatonin 5 mg 01/27/25 02:50 Melatonin 5 Mg Tablet PO HS PRN Insomnia Nifedipine 60 mg 01/27/25 10:45 01/27/25 11:56 Nifedipine 30 Mg Tab.Er.24 PO Not Given QAM [facility] Ondansetron HCl 4 mg 01/27/25 10:42 Ondansetron Inj 4 Mg/2 Ml Vial IV PUSH Q6H PRN Nausea And Vomiting Perflutren Lipid Microsphere 0 ml 01/27/25 02:56 Perflutren Lipid Microspheres 1.5 Ml Vial Diluted To 10 Ml Total Volume IV PUSH 01/30/25 02:56 ONCE PRN adequate visualization Protocol Polyethylene Glycol 17 gm 01/27/25 02:50 Polyethylene Glycol 3350 17 Gm Powd.Pack PO QAM PRN Constipation Rosuvastatin Calcium 10 mg 01/27/25 18:00 Rosuvastatin 10 Mg Tablet PO QPM [facility] Radiology Results: ITS Impressions Chest X-Ray 01/26/25 16:35 IMPRESSION: 1. No acute cardiopulmonary disease. Head/Neck CTA 01/26/25 19:37 IMPRESSION: 1. CTA head and neck. Percent stenosis per NASCET criteria is 60% on the left side and 40% on the right side. No intracranial occlusion or significant stenosis Labs Labs: Laboratory Results - last 24 hr 01/26/25 01/26/25 01/26/25 17:31 17:53 18:47 WBC 6.0 RBC 4.00 L Hgb 12.4 L Hct 36.4 L MCV 91.0 MCH 31.0 MCHC 34.1 RDW 12.6 Plt Count 137 L MPV 10.1 Immature Gran % (Auto) 0.3 Neut % (Auto) 62.6 Lymph % (Auto) 27.0 [place] % (Auto) 8.8 H Eos % (Auto) 1.0 Baso % (Auto) 0.3 Lymph # (Auto) 1.63 [place] # (Auto) 0.5 Eos # (Auto) 0.1 Baso # (Auto) 0.0 Abs Immat Gran (auto) 0.02 Absolute Neuts (auto) 3.8 Absolute Nucleated RBC 0.000 Nucleated RBC % 0.0 % Immature Plt Fraction 4.5 PT 13.4 INR 1.0 APTT 33.4 Sodium 139 Potassium 4.8 Chloride 105 Carbon Dioxide 24 Anion Gap 10 BUN 28 H D Creatinine 1.48 H Estim Creat Clear Calc 45 Estimated GFR 47 L Glucose 169 H POC Capillary Glucose Lactic Acid Calcium 9.1 Magnesium 2.1 Total Bilirubin 1.1 AST 19 ALT 18 Alkaline Phosphatase 48 Troponin I < 0.012 Total Protein 7.0 Albumin 4.1 TSH (Reflex) 0.716 Cortisol Baseline Cortisol Resp 30 Min Cortisol Resp 60 Min Urine Color Yellow Urine Appearance Clear Urine pH 5.5 Ur Specific [place] 1.019 Urine Protein Negative Urine Glucose (UA) 2+ H Urine Ketones Negative Ur Blood (Man) Negative Urine Nitrate Negative Urine Bilirubin Negative Urine Urobilinogen 1.0 Leukocyte Esterase Rfl Negative Influenza A (RT-PCR) Negative Influenza B (RT-PCR) Negative RSV (RT-PCR) Negative SARS-CoV-2 RNA (RT-PCR) Negative 01/26/25 01/26/25 01/27/25 22:29 22:44 07:21 WBC 5.7 RBC 3.99 L Hgb 12.3 L Hct 36.4 L MCV 91.2 MCH 30.8 MCHC 33.8 RDW 12.6 Plt Count 130 L MPV 10.2 Immature Gran % (Auto) 0.3 Neut % (Auto) 62.4 Lymph % (Auto) 26.4 [place] % (Auto) 9.3 H Eos % (Auto) 1.4 Baso % (Auto) 0.2 Lymph # (Auto) 1.51 [place] # (Auto) 0.5 Eos # (Auto) 0.1 Baso # (Auto) 0.0 Abs Immat Gran (auto) 0.02 Absolute Neuts (auto) 3.6 Absolute Nucleated RBC 0.000 Nucleated RBC % 0.0 % Immature Plt Fraction 3.9 PT INR APTT Sodium 141 Potassium 4.7 Chloride 110 H Carbon Dioxide 25 Anion Gap 6 BUN 17 D Creatinine 1.04 Estim Creat Clear Calc 63 Estimated GFR > 60 Glucose 146 H POC Capillary Glucose 166 H Lactic Acid 1.2 Calcium 8.7 Magnesium Total Bilirubin 1.4 H AST 19 ALT 16 Alkaline Phosphatase 46 Troponin I Total Protein 7.0 Albumin 4.0 TSH (Reflex) Cortisol Baseline Cortisol Resp 30 Min Cortisol Resp 60 Min Urine Color Urine Appearance Urine pH Ur Specific [place] Urine Protein Urine Glucose (UA) Urine Ketones Ur Blood (Man) Urine Nitrate Urine Bilirubin Urine Urobilinogen Leukocyte Esterase Rfl Influenza A (RT-PCR) Influenza B (RT-PCR) RSV (RT-PCR) SARS-CoV-2 RNA (RT-PCR) 01/27/25 01/27/25 01/27/25 09:13 11:21 12:05 WBC RBC Hgb Hct MCV MCH MCHC RDW Plt Count MPV Immature Gran % (Auto) Neut % (Auto) Lymph % (Auto) [place] % (Auto) Eos % (Auto) Baso % (Auto) Lymph # (Auto) [place] # (Auto) Eos # (Auto) Baso # (Auto) Abs Immat Gran (auto) Absolute Neuts (auto) Absolute Nucleated RBC Nucleated RBC % % Immature Plt Fraction PT INR APTT Sodium Potassium Chloride Carbon Dioxide Anion Gap BUN Creatinine Estim Creat Clear Calc Estimated GFR Glucose POC Capillary Glucose 142 H Lactic Acid Calcium Magnesium Total Bilirubin AST ALT Alkaline Phosphatase Troponin I Total Protein Albumin TSH (Reflex) Cortisol Baseline 10.50 Cortisol Resp 30 Min 25.60 Cortisol Resp 60 Min Urine Color Urine Appearance Urine pH Ur Specific [place] Urine Protein Urine Glucose (UA) Urine Ketones Ur Blood (Man) Urine Nitrate Urine Bilirubin Urine Urobilinogen Leukocyte Esterase Rfl Influenza A (RT-PCR) Influenza B (RT-PCR) RSV (RT-PCR) SARS-CoV-2 RNA (RT-PCR) 01/27/25 13:01 WBC RBC Hgb Hct MCV MCH MCHC RDW Plt Count MPV Immature Gran % (Auto) Neut % (Auto) Lymph % (Auto) [place] % (Auto) Eos % (Auto) Baso % (Auto) Lymph # (Auto) [place] # (Auto) Eos # (Auto) Baso # (Auto) Abs Immat Gran (auto) Absolute Neuts (auto) Absolute Nucleated RBC Nucleated RBC % % Immature Plt Fraction PT INR APTT Sodium Potassium Chloride Carbon Dioxide Anion Gap BUN Creatinine Estim Creat Clear Calc Estimated GFR Glucose POC Capillary Glucose Lactic Acid Calcium Magnesium Total Bilirubin AST ALT Alkaline Phosphatase Troponin I Total Protein Albumin TSH (Reflex) Cortisol Baseline Cortisol Resp 30 Min Cortisol Resp 60 Min 35.50 Urine Color Urine Appearance Urine pH Ur Specific [place] Urine Protein Urine Glucose (UA) Urine Ketones Ur Blood (Man) Urine Nitrate Urine Bilirubin Urine Urobilinogen Leukocyte Esterase Rfl Influenza A (RT-PCR) Influenza B (RT-PCR) RSV (RT-PCR) SARS-CoV-2 RNA (RT-PCR) Quality VTE Prophylaxis VTE prophylaxis: pharmacologic ordered -Patient's previous records reviewed on admission -ER notes reviewed in detail on admission -discussed all findings and current treatment plan with patient/Family/POA -Consultations reviewed for recommendations -Patient's disposition for safe discharge discussed with test case developer Dictation performed by [employer] direct speech recognition software, therefore public health informatician variants and typographical errors may occur. Hospitalist MIPS Advance Care Plan I have confirmed that the patient's Advanced Care Plan is present, code status is documented, or surrogate decision maker is listed in patient medical record.: Yes Medication Reconciliation I have utilized all available resources to obtain, update and review the patients current medications (includes all prescriptions, OTC, herbals, cannabis, and nutritional supplements).: Yes The patient is not eligible for med reconciliation; the patient is in a emergent medical situation where delaying treatment would jeopardize the patients health.: No
--- NOTE | 2025-01-27 16:39 | PM.CNCAR ---
Assessment and Plan Assessment and plan (1) Orthostatic hypotension: Code(s): I95.1 - Orthostatic hypotension Status: Acute Assessment and Plan: Discuss with patient to sit down right away or lie down if safe to do so if feels dizzy while standing or walking to abort syncopal episode. Keep well hydrated drinking at least 4 bottles of water a day. Will start Midodrine 10 mg TID and instructed to take it when expected to be upright and not when about to lie down within next 4 hours. Obtain as an outpatient compression stockings thigh highs 30 mmHg to be worn during the day. Obtain echo as an outpatient as it would not get done until Wednesday now as it is late on Wednesday. May d/c home from cardiology standpoint and f/u with me in 1 week. (2) Hypertension: Code(s): I10 - Essential (primary) hypertension Status: Acute Assessment and Plan: Resume Losartan 50 mg daily. History of Present Illness History of Present Illness Consult date/time: 01/27/25 16:39 Reason For Visit: orthostatic hypotension, acute kidney injury Narrative: 74 yr old man presents to ER for dizziness. He has a history of dizziness upon standing for last 3 years, hypertension, dyslipidemia, carotid stenosis. at bedside. Reports he was at a restaurant having lunch, then got up to leave and felt dizziness. He sat down then tried to get up again and felt dizzy. Then they came to ER and found he has significant orthostatic hypotension with BP dropping to 70 SBP and he was dehydrated. States he had this problem for 3 years happening every 6-9 month, and more recently happening regularly while standing. He passed out a couple of times recently while standing. He only drinks a couple of bottle of water a day. He can walk about a block normally and limited by hip arthritis pain. He smokes a pipe a day. Denies chest pain, sob, orthopnea, PND, edema. Review of Systems Constitutional: Constitutional: Reports as per HPI, Denies chills and Denies fever(s) Cardiovascular: Cardiovascular: Reports as per HPI, Denies chest pain and Denies irregular heart rhythm Respiratory: Respiratory: Reports as per HPI and Denies dyspnea Gastrointestinal: Gastrointestinal: Reports as per HPI and Denies abdominal pain Genitourinary: Genitourinary: Reports as per HPI and Denies dysuria Musculoskeletal: Musculoskeletal: Reports as per HPI and Reports arthralgias Neurologic: Reports as per HPI, Reports dizziness and Reports syncope [facility] Past Medical History Medical History (Updated 01/27/25 @ 16:44 by Eusebio David DO) Diabetes type 2, controlled BPH (benign prostatic hyperplasia) Hypertension Social History Social History Years smoked: 40 Smoking status: Former smoker Tobacco type: pipe Alcohol intake: current Drinks per week: 2 Substance use type: does not use Meds Home Medications and Allergies Home Medications ?Medication ?Instructions ?Recorded ?Confirmed ?Type sodium sul 1.479 gram-potas ch See Rx Instructions PO PER PKG DIR 04/30/22 01/27/25 Rx 0.188 gram-magnes sul 0.225 gram #24 tabs tablet (Sutab) finasteride 5 mg tablet 1 tablet PO DAILY 05/06/22 01/27/25 History losartan 50 mg tablet 50 tablet PO DAILY 05/06/22 01/27/25 History metformin 500 mg tablet 1,000 mg PO QAM 05/06/22 01/27/25 History nebivolol 5 mg tablet (Bystolic) 5 mg PO HS 05/06/22 01/27/25 History aspirin 81 mg capsule 81 mg PO DAILY 01/27/25 01/27/25 History rosuvastatin 10 mg tablet 10 mg PO QPM 01/27/25 01/27/25 History Allergies Allergy/AdvReac Type Severity Reaction Status Date / Time No Known Allergies Allergy Mild Verified 01/26/25 14:07 Vital Signs Vital Signs - 24 hr 01/26/25 18:46 01/26/25 18:52 01/26/25 18:54 Temperature Pulse Rate 62 66 70 Respiratory Rate Blood Pressure 193/55 H 141/57 H 89/40 L Pulse Oximetry 01/26/25 20:57 01/27/25 00:20 01/27/25 01:26 Temperature Pulse Rate 64 62 58 L Respiratory Rate 16 14 Blood Pressure 198/63 H 189/74 H Pulse Oximetry 100 100 01/27/25 02:58 01/27/25 03:01 01/27/25 03:03 Temperature Pulse Rate 61 64 66 Respiratory Rate Blood Pressure 193/69 H 180/72 H 137/61 Pulse Oximetry 01/27/25 03:07 01/27/25 06:07 01/27/25 07:26 Temperature 97.6 F Pulse Rate 66 62 60 Respiratory Rate 15 14 17 Blood Pressure 137/61 185/75 H 211/74 H Pulse Oximetry 100 100 95 01/27/25 09:43 01/27/25 11:29 01/27/25 11:30 Temperature Pulse Rate 60 56 L Respiratory Rate 18 15 Blood Pressure 189/59 H 146/58 H 78/52 L Pulse Oximetry 96 98 01/27/25 11:31 01/27/25 11:33 01/27/25 14:26 Temperature Pulse Rate 57 L 56 L 60 Respiratory Rate 15 Blood Pressure 119/58 L 191/69 H 191/73 H Pulse Oximetry 100 Exam Const: General: cooperative, healthy appearing and comfortable Resp: Auscultation: clear to auscultation bilaterally, no crackles, no rales, no rhonchi and no wheezes Cardio: Rate: regular rate Rhythm: regular rhythm Heart sounds: no murmurs Peripheral pulses: dorsalis pedis present GI: GI Palp: No abdominal tenderness and Yes Soft to palpation Neuro: General: oriented to person, oriented to place and oriented to time Extrem: Right lower extremity: no edema Left lower extremity: no edema Results Labs and Meds 01/27/25 07:21 01/27/25 07:21 Lab results: Cardiac Enzymes 01/26/25 01/27/25 Range/Units 17:31 07:21 AST 19 19 (17-59) U/L Troponin I < 0.012 (0.000-0.034) ng/mL Coagulation 01/26/25 Range/Units 18:47 PT 13.4 (11.1-14.7) Seconds APTT 33.4 (22.3-36.8) Seconds CBC 01/26/25 01/27/25 Range/Units 17:31 07:21 WBC 6.0 5.7 (4.5-10.0) K/mm3 RBC 4.00 L 3.99 L (4.6-6.20) M/mm3 Hgb 12.4 L 12.3 L (14.0-18.0) g/dL Hct 36.4 L 36.4 L (42.0-52.0) % Plt Count 137 L 130 L (150-375) k/mm3 Lymph # (Auto) 1.63 1.51 (0.9-3.2) K/mm3 [place] # (Auto) 0.5 0.5 (0.1-0.6) K/mm3 Eos # (Auto) 0.1 0.1 (0-0.3) K/mm3 Baso # (Auto) 0.0 0.0 (0.0-0.1) K/mm3 Comprehensive Metabolic Panel 01/26/25 01/27/25 Range/Units 17:31 07:21 Sodium 139 141 (137-145) mmol/L Potassium 4.8 4.7 (3.4-5.0) mmol/L Chloride 105 110 H (98-107) mmol/L Carbon Dioxide 24 25 (22-30) mmol/L BUN 28 H D 17 D (9-20) mg/dL Creatinine 1.48 H 1.04 (0.7-1.3) mg/dL Glucose 169 H 146 H (65-110) mg/dL Calcium 9.1 8.7 (8.4-10.2) mg/dL AST 19 19 (17-59) U/L ALT 18 16 (6-50) U/L Alkaline Phosphatase 48 46 (38-126) U/L Total Protein 7.0 7.0 (6.3-8.2) g/dL Albumin 4.1 4.0 (3.5-5.1) g/dL Intake and Output 01/27/25 01/27/25 01/27/25 07:59 15:59 23:59 Intake Total 1000 Balance 1000 Intake: IV 1000 Sodium Chloride 0.9% IV 1,000 1000 ml @ 125 mls/hr IV CONT .Q8H [facility] Rx#:[id number]
--- NOTE | 2025-01-27 16:55 | PM.DS ---
DS: Admitting Diagnosis Discharge Date 01/27/2025 Admitting Diagnosis Orthostatic hypotension DS: Discharge Diagnosis Discharge Diagnosis (1) Orthostatic hypotension: Code(s): I95.1 - Orthostatic hypotension Status: Acute Assessment and Plan: Patient reports he did do an outpatient event monitor for 2 weeks which did show bradycardia lowest at 43 at that time his primary care physician did stop his Bystolic and losartan about 2 weeks ago Syncopal episode x2 prior to arrival Positive orthostatic hypotension severe (191/69>119/58>78/52) [facility] Echo outpatient Cortisol stimulation was negative TSH WNL Troponin Negative EKG: Sinus Bradycardia Cardiology consulted for further recommendations CTA head with no acute findings: 60% on the left side and 40% on the right side. No intracranial occlusion or significant stenosis Fall precautions Was going to start Procardia will hold for now compression stockings with ambulation Continues cardiac monitoring Fludrocortisone 0.1 daily (2) Acute kidney injury: Code(s): N17.9 - Acute kidney failure, unspecified Status: Resolved Assessment and Plan: RESOLVED with IV fluids (3) Diabetes type 2, controlled: Code(s): E11.9 - Type 2 diabetes mellitus without complications Status: Acute Assessment and Plan: Accu-Cheks a.c. HS sliding scale insulin hold oral diabetic medications Diabetic diet (4) BPH (benign prostatic hyperplasia): Code(s): N40.0 - Benign prostatic hyperplasia without lower urinary tract symptoms Status: Acute Assessment and Plan: Resume Proscar Monitor for urinary retention DS: Summary Hospital Course Reason for hospitalization: orthostatic hypotension/ bradycardia Hospital Course: Patient presented to the ED after he has been experiencing intermittent dizziness over the last few years; it is usually aggravated by standing from a standing position; alleviated by sitting or laying supine; associated with falls and a restriction of his ADLs in the past his Tamsulosin was stopped; he has experience micturition syncope and in recent weeks has had to stop his Nebivolol and Losartan, had a Holter monitor placed to evaluate for cardiac events. 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 He was therefore brought to the ED for evaluation. During patient's admission he was found to be orthostatic hypotensive positive systolics ranging anywhere from the 190s and would drop down to the 70s. did perform a cortisol stimulation test which was negative and had a consult to Cardiology initially had echocardiogram ordered however no tick would be available to perform for 2 days. patient otherwise with no other symptoms has been following with his primary care physician due to continued symptoms. patient is seen by Cardiology at which time they instructed him to start midodrine 10 mg t.i.d. when expected to be upright for a long period of time within the next 4 hours of taking they also agreed patient should be wearing compression stockings thigh-high 30 mmHg during the day with any ambulation or activity. If persist also recommended and abdominal binder as needed. patient at time of discharge in no acute distress denied any chest pain, shortness a breath, nausea, vomiting, dizziness, visual changes. it was recommended he could resume his losartan at 50 mg daily which time he will discuss with his primary care physician plan to have follow-up in 1 week with Cardiology and was provided order for outpatient echocardiogram. patient was discharged home with . Status at Discharge Functional status at discharge: independent ambulation Overall status at discharge: patient is back to baseline Time Spent with Patient Time attestation: Total time spent providing and/or coordinating discharge services: Time spent: Greater than 30 minutes Exam Const: General: comfortable and no acute distress HENMT: Ears: TM's normal bilaterally Face/Nose/Sinus: Normal nares present Eyes: General: appearance normal, both eyes and all related structures Sclera: sclerae normal Pupils: Equal, round and reactive pupils present EOM: EOMs intact bilaterally Neck: Neck: supple Resp: Effort & Inspection: normal respiratory effort Auscultation: clear to auscultation bilaterally Cardio: Rate: regular rate : General: Yes bladder normal to palpation Skin: General skin exam: normal color, lesion and rashes Lesions: lesion noted Rashes: rashes noted Neuro: General: gait normal Cranial nerves: Yes Equal, round and reactive pupils present Motor exam (neuro): 5/5 motor strength present throughout, Normal motor muscle tone present throughout and Abnormal motor strength present Extrem: General: normal to inspection Psych: Mental Status: mental status grossly normal Affect: normal affect DS: Data Data Completed and Pending Labs on day of discharge: Labs from last 24 hours 01/27/25 01/27/25 01/27/25 13:01 12:05 11:21 WBC RBC Hgb Hct MCV MCH MCHC RDW Plt Count MPV Immature Gran % (Auto) Neut % (Auto) Lymph % (Auto) [place] % (Auto) Eos % (Auto) Baso % (Auto) Lymph # (Auto) [place] # (Auto) Eos # (Auto) Baso # (Auto) Abs Immat Gran (auto) Absolute Neuts (auto) Absolute Nucleated RBC Nucleated RBC % % Immature Plt Fraction PT INR APTT Sodium Potassium Chloride Carbon Dioxide Anion Gap BUN Creatinine Estim Creat Clear Calc Estimated GFR Glucose POC Capillary Glucose Lactic Acid Calcium Magnesium Total Bilirubin AST ALT Alkaline Phosphatase Troponin I Total Protein Albumin TSH (Reflex) Cortisol Baseline 10.50 Cortisol Resp 30 Min 25.60 Cortisol Resp 60 Min 35.50 Urine Color Urine Appearance Urine pH Ur Specific [place] Urine Protein Urine Glucose (UA) Urine Ketones Ur Blood (Man) Urine Nitrate Urine Bilirubin Urine Urobilinogen Leukocyte Esterase Rfl Influenza A (RT-PCR) Influenza B (RT-PCR) RSV (RT-PCR) SARS-CoV-2 RNA (RT-PCR) 01/27/25 01/27/25 01/26/25 09:13 07:21 22:44 WBC 5.7 RBC 3.99 L Hgb 12.3 L Hct 36.4 L MCV 91.2 MCH 30.8 MCHC 33.8 RDW 12.6 Plt Count 130 L MPV 10.2 Immature Gran % (Auto) 0.3 Neut % (Auto) 62.4 Lymph % (Auto) 26.4 [place] % (Auto) 9.3 H Eos % (Auto) 1.4 Baso % (Auto) 0.2 Lymph # (Auto) 1.51 [place] # (Auto) 0.5 Eos # (Auto) 0.1 Baso # (Auto) 0.0 Abs Immat Gran (auto) 0.02 Absolute Neuts (auto) 3.6 Absolute Nucleated RBC 0.000 Nucleated RBC % 0.0 % Immature Plt Fraction 3.9 PT INR APTT Sodium 141 Potassium 4.7 Chloride 110 H Carbon Dioxide 25 Anion Gap 6 BUN 17 D Creatinine 1.04 Estim Creat Clear Calc 63 Estimated GFR > 60 Glucose 146 H POC Capillary Glucose 142 H 166 H Lactic Acid Calcium 8.7 Magnesium Total Bilirubin 1.4 H AST 19 ALT 16 Alkaline Phosphatase 46 Troponin I Total Protein 7.0 Albumin 4.0 TSH (Reflex) Cortisol Baseline Cortisol Resp 30 Min Cortisol Resp 60 Min Urine Color Urine Appearance Urine pH Ur Specific [place] Urine Protein Urine Glucose (UA) Urine Ketones Ur Blood (Man) Urine Nitrate Urine Bilirubin Urine Urobilinogen Leukocyte Esterase Rfl Influenza A (RT-PCR) Influenza B (RT-PCR) RSV (RT-PCR) SARS-CoV-2 RNA (RT-PCR) 01/26/25 01/26/25 01/26/25 22:29 18:47 17:53 WBC RBC Hgb Hct MCV MCH MCHC RDW Plt Count MPV Immature Gran % (Auto) Neut % (Auto) Lymph % (Auto) [place] % (Auto) Eos % (Auto) Baso % (Auto) Lymph # (Auto) [place] # (Auto) Eos # (Auto) Baso # (Auto) Abs Immat Gran (auto) Absolute Neuts (auto) Absolute Nucleated RBC Nucleated RBC % % Immature Plt Fraction PT 13.4 INR 1.0 APTT 33.4 Sodium Potassium Chloride Carbon Dioxide Anion Gap BUN Creatinine Estim Creat Clear Calc Estimated GFR Glucose POC Capillary Glucose Lactic Acid 1.2 Calcium Magnesium Total Bilirubin AST ALT Alkaline Phosphatase Troponin I Total Protein Albumin TSH (Reflex) Cortisol Baseline Cortisol Resp 30 Min Cortisol Resp 60 Min Urine Color Yellow Urine Appearance Clear Urine pH 5.5 Ur Specific [place] 1.019 Urine Protein Negative Urine Glucose (UA) 2+ H Urine Ketones Negative Ur Blood (Man) Negative Urine Nitrate Negative Urine Bilirubin Negative Urine Urobilinogen 1.0 Leukocyte Esterase Rfl Negative Influenza A (RT-PCR) Negative Influenza B (RT-PCR) Negative RSV (RT-PCR) Negative SARS-CoV-2 RNA (RT-PCR) Negative 01/26/25 17:31 WBC 6.0 RBC 4.00 L Hgb 12.4 L Hct 36.4 L MCV 91.0 MCH 31.0 MCHC 34.1 RDW 12.6 Plt Count 137 L MPV 10.1 Immature Gran % (Auto) 0.3 Neut % (Auto) 62.6 Lymph % (Auto) 27.0 [place] % (Auto) 8.8 H Eos % (Auto) 1.0 Baso % (Auto) 0.3 Lymph # (Auto) 1.63 [place] # (Auto) 0.5 Eos # (Auto) 0.1 Baso # (Auto) 0.0 Abs Immat Gran (auto) 0.02 Absolute Neuts (auto) 3.8 Absolute Nucleated RBC 0.000 Nucleated RBC % 0.0 % Immature Plt Fraction 4.5 PT INR APTT Sodium 139 Potassium 4.8 Chloride 105 Carbon Dioxide 24 Anion Gap 10 BUN 28 H D Creatinine 1.48 H Estim Creat Clear Calc 45 Estimated GFR 47 L Glucose 169 H POC Capillary Glucose Lactic Acid Calcium 9.1 Magnesium 2.1 Total Bilirubin 1.1 AST 19 ALT 18 Alkaline Phosphatase 48 Troponin I < 0.012 Total Protein 7.0 Albumin 4.1 TSH (Reflex) 0.716 Cortisol Baseline Cortisol Resp 30 Min Cortisol Resp 60 Min Urine Color Urine Appearance Urine pH Ur Specific [place] Urine Protein Urine Glucose (UA) Urine Ketones Ur Blood (Man) Urine Nitrate Urine Bilirubin Urine Urobilinogen Leukocyte Esterase Rfl Influenza A (RT-PCR) Influenza B (RT-PCR) RSV (RT-PCR) SARS-CoV-2 RNA (RT-PCR) Discharge Plan Discharge Attending physician on discharge: Bennie Almanzar Consulting providers: Jacki Stephens; Eusebio David Discharging Clinician: Jacki Stephens Anticipated Discharge Date/Time: 01/27/25 16:49 Patient Disposition: Home, Self-Care Activity: may shower Diet: heart healthy Discharge Instructions: Orthostatic hypotension: Advised to sit down right away or lie down if safe to do so if feels dizzy while standing or walking to abort syncopal episode. Keep well hydrated drinking at least 4 bottles of water a day. Will start Midodrine 10 mg TID and instructed to take it when expected to be upright and not when about to lie down within next 4 hours. Obtain as an outpatient compression stockings thigh highs 30 mmHg to be worn during the day. Obtain echo as an outpatient Follow-up with dr. David 1 week Cortisol testing was within normal limits How can you care for yourself at home? ? Keep track of any new symptoms or changes in your symptoms. ? Rest until you feel better. ? Be safe with medicines. Take your medicines exactly as prescribed. Call your doctor if you think you are having a problem with your medicine. ? Do not drive after taking a prescription pain medicine. ? Ensure to follow-up with primary care physician as indicated and provide updated medication list provided to you at discharge. When should you call for help? Call 911 anytime you think you may need emergency care. For example, call if: ? You passed out (lost consciousness). Call your doctor now or seek immediate medical care if: ? You have new symptoms like fever, difficulty breathing, Chest pain, vomiting, or rash. ? You have new or different pain. ? You are confused and are having trouble thinking clearly. ? Your symptoms are getting worse. Watch closely for changes in your health, and be sure to contact your doctor if: ? You do not get better as expected. Patient Instructions: Midodrine (By mouth), Syncope (DC), Hypotension (DC) Patient Language: Chinese Stand Alone Forms: General Discharge Information Follow-up/Referrals: Ed Senior MD [Primary Care Provider] - 2 Weeks Discharge Medications: New midodrine 10 mg Tablet 10 mg PO TID Qty: 90 0RF Continued metformin 500 mg tablet 1,000 mg PO QAM Rx Instructions: TAKE 2 TABLETS BY MOUTH EVERY DAY IN THE MORNING AND TAKE 1 TABLET IN THE EVENING finasteride 5 mg tablet 1 tablet PO DAILY rosuvastatin 10 mg tablet 10 mg PO QPM aspirin 81 mg capsule 81 mg PO DAILY Discontinued losartan 50 mg tablet 50 tablet PO DAILY nebivolol [Bystolic] 5 mg tablet 5 mg PO HS Sutab 1.479-0.188- 0.225 gram tablet See Rx Instructions PO PER PKG DIR Qty: 24 0RF Rx Instructions: PATIENT SCHEDULED 05/22/22 AT 11:00 AM, ARRIVAL TIME 9:[address] CLAUDIA GONZALEZ. Other Ambulatory Orders: [place] echo doppler color flow (Routine) Timeframe: 1 Week Location: Determined by Patient Ordered By: Jacki Stephens Date of admission: 01/27/25 16:34 Primary Care Provider: Anju*Ed Hudson Admitting Provider: Marcio Johnson Attending physician on admission: Marcio Johnson Condition: Stable Quality VTE Prophylaxis VTE prophylaxis: pharmacologic ordered -Patient's previous records reviewed on admission -ER notes reviewed in detail on admission -discussed all findings and current treatment plan with patient/Family/POA -Consultations reviewed for recommendations -Patient's disposition for safe discharge discussed with trimming caser Dictation performed by [employer] direct speech recognition software, therefore veterinary hospital attendant variants and typographical errors may occur. Hospitalist MIPS Heart Failure (Exclusion) Patient has history of Heart Transplant or Left Ventricular Assistive Device?: No IF YES, STOP HERE Heart Failure (Qualifier) Patient has current or prior documentation of LVEF less than or equal to 40%, or mod/servere depressed LVSF?: No IF NO, STOP HERE
--- NOTE | 2025-01-27 17:08 | ADMGEN ---
This patient, Juan Daniel Herrera, was admitted to 3 [facility] Surg Room 304-01. Patient/family oriented to hospital policies and general routines including ID bracelet, bed and alarms, visiting hours, pain management, procedures, bathroom and other care routines, personal items, smoking policy, room service/diet, and visiting hours. Information on how to activate the Rapid Response Team has been discussed. Patient/Family are encouraged to report perceived risks to care and to ask questions if they do not understand what they are told or what they should do.
[2025-01-27 17:17] LABS: Glucose Point of Care 211 mg/dl (65-105)
== END 2025-01-27 17:50 | disposition home or self-care (01) | DRG 312 ==
LOC: ANHED 22:08 → ANH3MEDSUR 23:22
PROVIDERS: Physician Assistant; Admitting Provider Internal Medicine; Emergency Provider Registered Nurse; PCP Internal Medicine; Visit Provider Nurse Practitioner Family
DX: I95.1 Orthostatic hypotension (principal); N17.9 Acute kidney failure, unspecified; E11.9 Type 2 diabetes mellitus without complications; N40.0 Benign prostatic hyperplasia without lower urinary tract symptoms; E78.5 Hyperlipidemia, unspecified; I10 Essential (primary) hypertension; Z20.822 Contact with and (suspected) exposure to COVID-19; Z79.82 Long term (current) use of aspirin; Z79.84 Long term (current) use of oral hypoglycemic drugs; Z87.891 Personal history of nicotine dependence
CPT/HCPCS: 36415; 70496; 70498; 71046; 80053; 81003; 82533; 82948; 83605; 83735; 84443; 84484; 85025; 85055; 85610; 85730; 87637; 93005; 96361; 99285; A9270; G0378; J0834; J1644; J7030; Q9967